=== PATIENT | female | born 1960 | race Caucasian/White ===

== ENCOUNTER 2021-04-05 21:37 | Emergency (ER) | payer MEDICARE, OTHER ==
[2021-04-05] MEDS ORDERED: ATOR20TA86 PO (22:04)
[2021-04-05] MEDS ORDERED: PYRI-14 PO (22:04)
[2021-04-05] MEDS ORDERED: ALBU8HFA IH (22:04)
[2021-04-05] MEDS ORDERED: SERT-162 PO (22:04)
[2021-04-05] MEDS ORDERED: TIOT185 IH (22:04)
[2021-04-05] MEDS ORDERED: GABA-1216 PO (22:04)
[2021-04-05] MEDS ORDERED: CLON-595 PO (22:04)
[2021-04-05] MEDS ORDERED: CHOL100044 PO (22:04)
[2021-04-05] MEDS ORDERED: ONDA-104 PO (22:04)
[2021-04-05] MEDS ORDERED: OMEP20 PO (22:04)
[2021-04-05] MEDS ORDERED: BUDE10.2 IH (22:04)
[2021-04-05] MEDS ORDERED: ACETAMINOPHEN 500 MG TABLET PO ONE (22:30)
[2021-04-05] MEDS ORDERED: KETOROLAC TROMETHAMINE 30 MG/ML VIAL IM ONE (22:30)
[2021-04-05] MEDS ORDERED: OxyCODONE HCL 5 MG IR TABLET PO ONE (22:45)
[2021-04-06 01:16] VITALS: BP 124/65
== END 2021-04-06 01:41 | disposition home or self-care (01) ==
LOC: EMS 21:46
DX: S93.401A Sprain of unspecified ligament of right ankle, initial encounter (principal); F32.9 Major depressive disorder, single episode, unspecified; Z90.89 Acquired absence of other organs; Z88.5 Allergy status to narcotic agent; W01.0XXA Fall on same level from slipping, tripping and stumbling without subsequent striking against object, initial encounter; Y93.89 Activity, other specified; Y92.89 Other specified places as the place of occurrence of the external cause; Y99.8 Other external cause status
CPT/HCPCS: 73610; 73630; 99284; J1885